=== PATIENT | female | born 1975 | race Caucasian/White ===

== ENCOUNTER 2017-07-14 10:20 | Emergency (ER) | payer BC, OTHER ==
--- NOTE | 2017-07-14 14:02 | RAD ---
AP AND LATERAL VIEWS RIGHT TIBIA AND FIBULA: Date: 07/14/17 HISTORY: Trauma with pain. FINDINGS: AP and lateral views of right tibia and fibula demonstrate no evidence of tibial or fibular fractures , subluxations, or bony lesions. IMPRESSION: Normal 2 views right tibia and fibula. POS: [facility]
== END 2017-07-14 13:00 | disposition home or self-care (01) ==
LOC: MADERS 10:20
DX: S86.911A Strain of unspecified muscle(s) and tendon(s) at lower leg level, right leg, initial encounter (principal); W18.30XA Fall on same level, unspecified, initial encounter

== ENCOUNTER 2019-01-31 08:38 | Outpatient (CLI) | payer OTHER ==
--- NOTE | 2019-01-31 09:19 | CT ---
CT HEAD WITHOUT CONTRAST: Indications: Dizziness. FINDINGS: The ventricles have normal size and position. There is no evidence of intracranial mass, hemorrhage, or edema. No evidence of infarct. Sinuses are aerated. No mucosal edema is seen in the ethmoids. Mast oid air cells are clear. IMPRESSION: No acute abnormality identified. POS: [facility]
== END 2019-01-31 08:39 | disposition home or self-care (01) ==
LOC: MADCT 08:38
DX: R42 Dizziness and giddiness (principal)
CPT/HCPCS: 70450